=== PATIENT | female | born 1995 | race Two or more races ===

== ENCOUNTER 2018-02-03 14:48 | Emergency (ER) | payer OTHER ==
[~2018-02-03] VITALS: Ht 165.1 cm; Wt 113.0 kg
[2018-02-03] MEDS ORDERED: SODIUM CHLORIDE FLUSH 10ML SYR IVF ONE (15:00)
[2018-02-03 15:22] LABS: BASOPHILS # (AUTO) 0.02 x10^3/uL (0-0.3); BASOPHILS % (AUTO) 0 % (0-1); EOSINOPHILS # (AUTO) 0.06 x10^3/uL (0-0.8); EOSINOPHILS % (AUTO) 1 % (1-7); LYMPHOCYTES # (AUTO) 1.57 x10^3/uL (1-6.1); LYMPHOCYTES % (AUTO) 26 % (22-44); MD NO; MEAN CORPUSCULAR HEMOGLOBIN 29.7 pg (27.0-34.8); MEAN CORPUSCULAR HGB CONC 34.2 g/dL (32.4-35.8); MEAN CORPUSCULAR VOLUME 86.8 fL (80-100); MEAN PLATELET VOLUME 8.3 fL (7.4-10.4); MONOCYTES # (AUTO) 0.41 x10^3/uL (0-1.4); MONOCYTES % (AUTO) 7 % (2-9); NEUTROPHILS # (AUTO) 4.08 x10^3/uL (1.8-8.0); NEUTROPHILS % (AUTO) 66 % (42-75); PLATELET COUNT 327 x10^3/uL (130-400); RED BLOOD COUNT 5.01 x10^6/uL (3.82-5.3); RED CELL DISTRIBUTION WIDTH 13.3 % (9.6-15.2)
[2018-02-03 15:34] LABS: ALBUMIN 3.5 g/dL (3.4-5.0); ANION GAP 10 mmol/L (5-15); CALCIUM 9.3 mg/dL (8.5-10.1); CHLORIDE 106 mmol/L (98-107); CREATININE 0.82 mg/dL (0.55-1.02)
[2018-02-03 15:36] LABS: INTERNATIONAL NORMALIZED RATIO 1.06 (0.93-1.1); PROTHROMBIN TIME 10.9 Seconds (9.6-11.5)
[2018-02-03 15:38] LABS: TROPONIN I < 0.015 ng/mL (0.000-0.045)
[2018-02-03] MEDS ORDERED: OMNIPAQUE 350 MG/ML, 100ML BOTTLE ONE (16:51)
[2018-02-03 17:31] VITALS: BP 150/87
== END 2018-02-03 18:18 | disposition home or self-care (01) ==
LOC: ED 18:07
DX: R07.89 Other chest pain (principal); M94.0 Chondrocostal junction syndrome [Tietze]
CPT/HCPCS: 36415; 71275; 80048; 82040; 84484; 85025; 85610; 85730; 93005; 99285; Q9967